=== PATIENT | female | born 1950 | race Caucasian/White ===

== ENCOUNTER → 2022-03-16 | Outpatient (CLI) | payer MEDICARE ==
[~2022-03-16] MED LIST: ASCO500C3 PO; B-122500 PO; BISO1TAB18 PO; GABA600T4 PO; GNP1000C11 PO; LORA-674 PO; MELO15TA28 PO; NOXI1TAB PO; OYST500C PO; SIMV20TA22 PO; [UNRECOGNIZED DRUG - OTHER] PO
== END ==
LOC: M LABSMTC 10:44
PROVIDERS: ATTEND Anesthesiology
DX: Z01.812 Encounter for preprocedural laboratory examination (principal); Z20.822 Contact with and (suspected) exposure to COVID-19

== ENCOUNTER 2022-03-17 10:03 | Day surgery (SDC) | payer MEDICARE ==
[~2022-03-17] VITALS: Ht 149.9 cm; Wt 90.3 kg
[~2022-03-17 10:03] MED LIST changes: +LIDOCAINE 3.5 % 1ML OPHTH TOPICAL GEL OU ONE; +MIDAZOLAM INJ 2MG/2ML VIAL (J2250 PER 1MG) As Ordered ONE; +TOBRADEX OPHTH OINT 3.5 GM As Ordered ONE; +fentaNYL 100 MCG/2 ML INJECTION As Ordered ONE; +mitoMYcin 0.2 MG/VIAL KIT FOR OPHTHALMIC USE As Ordered ONE
[2022-03-17 11:56] VITALS: BP 140/74
== END 2022-03-17 12:18 | disposition home or self-care (01) ==
LOC: M SDC 10:03
PROVIDERS: ATTEND Ophthalmology
DX: H40.1120 Primary open-angle glaucoma, left eye, stage unspecified (principal); I10 Essential (primary) hypertension; E78.5 Hyperlipidemia, unspecified; E11.9 Type 2 diabetes mellitus without complications; E66.01 Morbid (severe) obesity due to excess calories; Z79.899 Other long term (current) drug therapy; Z88.2 Allergy status to sulfonamides; Z88.5 Allergy status to narcotic agent
CPT/HCPCS: 66183; C1783; J2250; J3010; J7315

== ENCOUNTER → 2022-09-26 | Outpatient (REF) | payer MEDICARE ==
[~2022-09-26] MED LIST changes: -LIDOCAINE 3.5 % 1ML OPHTH TOPICAL GEL OU ONE; -MIDAZOLAM INJ 2MG/2ML VIAL (J2250 PER 1MG) As Ordered ONE; -TOBRADEX OPHTH OINT 3.5 GM As Ordered ONE; -fentaNYL 100 MCG/2 ML INJECTION As Ordered ONE; -mitoMYcin 0.2 MG/VIAL KIT FOR OPHTHALMIC USE As Ordered ONE
== END ==
LOC: M LAB REF 15:55
PROVIDERS: ATTEND Physician Assistant
DX: D23.10 Other benign neoplasm of skin of unspecified eyelid, including canthus (principal)